=== PATIENT | female | born 1950 | race Caucasian/White ===

== ENCOUNTER 2017-10-09 12:01 | Inpatient (IN) | payer OTHER ==
[~2017-10-09] VITALS: Ht 157.5 cm; Wt 68.6 kg
[~2017-10-09 12:01] MED LIST: ADVIL,NUPRIN,M200 MG PO; ASPIRIN325 MG PO; CLOPIDOGREL75 MG PO; DAILY VITE1 EAC1 PO; GLUCOSA-CHOND-1 EACH PO; LEVAQUIN750 MG PO; LEVOFLOXACIN500 MG PO; MEDROL DOSEPAK4 MG PO; MONOPRIL HCT1 TABLE1 PO; NIACIN500 M4 PO; OXYBUTYNIN CHLOR5 MG PO; OXYGEN MC; SIMVASTATIN40 MG PO; SPIRIVA RESPIMAT4 GM IH; SYNTHROID100 MCG PO; SYNTHROID150 MCG PO; SYNTHROID200 MCG PO; SYNTHROID25 MCG PO; TYLENOL EXTRA500 MG PO; VENTOLIN HFA18 GM IH; VITAMIN C500 M1 PO; ZYVOX600 MG PO
[2017-10-09 14:03] LABS: BASOPHIL (%) 0.1 % (0-1); EOSINOPHIL (%) 0.4 % (0-5); HEMATOCRIT 39.4 % (36.0-46.0); HEMOGLOBIN 12.8 G/DL (11.9-15.5); IMMATURE GRANULOCYTE (%) 0.4 % (0.0-0.7); LYMPHOCYTE (%) 16.3 % (15-42); LYMPHOCYTE COUNT 1.2 K/uL (1.0-2.8); MCH 29.6 PG (29.0-34.0); MCHC 32.5 G/DL (30.0-36.0); MONOCYTE (%) 4.1 % (3-12); MONOCYTE COUNT 0.3 K/uL (0-0.8); NEUTROPHIL (%) 78.7 % (45-76); NEUTROPHIL COUNT 5.8 K/uL (1.8-6.4); PLATELET COUNT 232 K/uL (156-360); RBC DIS.WIDTH-CV 13.5 % (11.8-14.6); RBC DIS.WIDTH-SD 45.4 % (39-53); RED BLOOD COUNT 4.33 M/uL (3.80-5.20); WHITE BLOOD COUNT 7.3 K/uL (4.1-10.2)
[2017-10-09 14:08] LABS: INTER. NORMALIZED RATIO 1.1
[2017-10-09 14:12] LABS: CHLORIDE 100 mEq/L (99-109); POTASSIUM 3.4 mEq/L (3.7-5.4); SODIUM 132 mEq/L (136-147)
[2017-10-09 14:13] LABS: GLUCOSE 85 mg/dL (70-99)
[2017-10-09 14:17] LABS: CREATININE 0.7 mg/dL (0.6-1.3); GFR ESTIMATE (CALCULATED) > 59 mL/min/
[2017-10-09 14:18] LABS: UREA NITROGEN (BUN) 15 mg/dL (9-23)
[2017-10-09 14:23] LABS: TROP-I INTERPRETATION NEGATIVE; TROPONIN-I 0.02 ng/mL (0.0-0.30)
[2017-10-09] MEDS ORDERED: MONOPRIL HCT1 TABLE1 PO (19:20)
[2017-10-09] MEDS ORDERED: LEVOTHYROXINE150 MCG PO (19:22)
[2017-10-10] VITALS (7 sets, daily range): BP systolic 13–134; BP diastolic 56–76
[2017-10-10 07:50] LABS: HEMATOCRIT 35.6 % (36.0-46.0); HEMOGLOBIN 11.7 G/DL (11.9-15.5); MCH 29.9 PG (29.0-34.0); MCHC 32.9 G/DL (30.0-36.0); PLATELET COUNT 253 K/uL (156-360); RBC DIS.WIDTH-CV 13.6 % (11.8-14.6); RBC DIS.WIDTH-SD 45.5 % (39-53); RED BLOOD COUNT 3.91 M/uL (3.80-5.20); WHITE BLOOD COUNT 4.1 K/uL (4.1-10.2)
[2017-10-10 08:16] LABS: CHLORIDE 102 MEQ/L (99-109); CREATININE 0.5 MG/DL (0.6-1.3); GFR ESTIMATE (CALCULATED) > 59 mL/min/; POTASSIUM 3.3 MEQ/L (3.7-5.4); SODIUM 135 MEQ/L (136-147); UREA NITROGEN (BUN) 17 mg/dL (9-23)
[2017-10-10 08:20] LABS: GLUCOSE 129 mg/dL (70-99)
[2017-10-10 08:25] LABS: BASOPHIL (%) 0.2 % (0-1); EOSINOPHIL (%) 0 % (0-5); IMMATURE GRANULOCYTE (%) 1.5 % (0.0-0.7); LYMPHOCYTE COUNT 0.8 K/uL (1.0-2.8); MONOCYTE (%) 1.2 % (3-12); MONOCYTE COUNT 0.1 K/uL (0-0.8); NEUTROPHIL (%) 78.1 % (45-76); NEUTROPHIL COUNT 3.2 K/uL (1.8-6.4); PLAT.SUFFICIENCY ADEQUATE
[2017-10-10 21:05] LABS: ALBUMIN 3.1 G/DL (3.2-4.8); ALKALINE PHOSPHATASE 61 IU/L (3-129); ALT (GPT) 5 IU/L (3-49); AST (GOT) 8 IU/L (2-34); DIRECT BILIRUBIN 0.1 mg/dL (0.0-0.3); TOTAL BILIRUBIN 0.3 MG/DL (0.0-1.0); TOTAL PROTEIN 7.2 G/DL (6.4-8.3)
[2017-10-11 03:26] VITALS: BP 138/72
[2017-10-11 05:58] LABS: CHLORIDE 108 MEQ/L (99-109); CREATININE 0.5 MG/DL (0.6-1.3); GFR ESTIMATE (CALCULATED) > 59 mL/min/; GLUCOSE 137 mg/dL (70-99); SODIUM 136 MEQ/L (136-147); UREA NITROGEN (BUN) 24 mg/dL (9-23)
[2017-10-11 08:00] VITALS: BP 131/75
[2017-10-11 11:55] VITALS: BP 160/71
[2017-10-11 16:00] VITALS: BP 146/60
[2017-10-11 20:32] VITALS: BP 135/62
[2017-10-11 23:48] VITALS: BP 142/72
[2017-10-12] VITALS (7 sets, daily range): BP systolic 138–188; BP diastolic 68–89
[2017-10-13 03:35] VITALS: BP 159/74
[2017-10-13 07:07] VITALS: BP 167/80
[2017-10-13] MEDS ORDERED: ADVAIR HFA120 INHALA IH (12:56)
[2017-10-13] MEDS ORDERED: AUGMENTIN875 MG PO (12:57)
[2017-10-13] MEDS ORDERED: SPIRIVA RESPIMAT4 GM IH (12:57)
[2017-10-13] MEDS ORDERED: PREDNISONE10 MG PO (12:58)
== END 2017-10-13 14:15 | disposition home or self-care (01) | DRG 193 ==
LOC: EME 12:01 → 4SOUTH 21:09 → EDOF 21:09 → ENRESERV 21:13 → EDOF 10-10 00:26 → ENRESERV 10-10 01:08 → 4SOUTH 10-10 01:43 → ENRESERV 10-12 16:21 → 2EASTP 10-12 17:55
PROVIDERS: Emergency Medicine; Hospitalist
DX: J13 Pneumonia due to Streptococcus pneumoniae (principal); J44.0 Chronic obstructive pulmonary disease with (acute) lower respiratory infection; J96.91 Respiratory failure, unspecified with hypoxia; J44.1 Chronic obstructive pulmonary disease with (acute) exacerbation; I11.9 Hypertensive heart disease without heart failure; R59.1 Generalized enlarged lymph nodes; M62.838 Other muscle spasm; N31.9 Neuromuscular dysfunction of bladder, unspecified; E78.5 Hyperlipidemia, unspecified; I25.10 Atherosclerotic heart disease of native coronary artery without angina pectoris; E03.9 Hypothyroidism, unspecified; K80.20 Calculus of gallbladder without cholecystitis without obstruction; J84.10 Pulmonary fibrosis, unspecified; J90 Pleural effusion, not elsewhere classified; Z79.82 Long term (current) use of aspirin; Z95.5 Presence of coronary angioplasty implant and graft; Z87.891 Personal history of nicotine dependence; Z82.3 Family history of stroke; Z80.1 Family history of malignant neoplasm of trachea, bronchus and lung
CPT/HCPCS: 71045; 71275; 80048; 80076; 82948; 84484; 85025; 85379; 85610; 87040; 87070; 87205; 87449; 87502; 93005; 94640; 94640 76; 94760; 94799; 99202; 99281; 99285; J0295; J0456; J0696; J1644; J2920; J2930; J7030; J7050